=== PATIENT | male | born 1950 | race Caucasian/White ===

== ENCOUNTER 2019-08-01 10:57 | Outpatient (CLI) | payer MEDICARE, OTHER ==
[2019-08-01 12:53] VITALS: BP 166/103
--- NOTE | 2019-08-01 12:53 | SLEEP CARE CONSULTATION ---
Information from patient questionnaire entered by Cate Arias. I have reviewed and concur with the information entered by Cate Arias. This document represents the service I personally performed and the decisions made by me, Victorina Hurt MD, [facility]. History of Present Illness Reason for Visit: New patient Chief Complaint: reports: Other (study for apnea) Duration of Symptoms: years Usual bedtime: 0 Time it takes to fall asleep: fast Snores at night: Yes (without machine) Observed to quit breathing while asleep: Yes Sleeps alone due to snoring: No Number of times waking at night: 1 Reasons for waking at night: reports: Bathroom Toss, Turn, or Twitch while sleeping: Yes Recalls having dreams: Yes Usually gets out of bed at: 0700 Morning headache: No Sleepy or fatigued during the day: Yes (sometimes) Ever fallen asleep while driving: No Takes day naps: Yes Dreams during day naps: Yes Prior sleep studies: Yes Additional HPI information: I had the pleasure of seeing Mr. Lopez today regarding obstructive sleep apnea-hypopnea. As you know, he is a 68 year old gentleman who was diagnosed with the sleep-disordered breathing long time ago. One polysomnography report we have is from [place], [place] in 2004. The AHI was 59. He has a very old Respironics M-Series CPAP device set at 13.5 cmH2O. He uses every night and all night. The compliance data is not available. He wears a nasal mask. He finds the treatment very beneficial. He gets his supplies online and a durable medical supplier in [place]. The durable medical supplier told him that he will need a new sleep study to purchase a new machine on Medicare. He also has a Transcend traveling CPAP. Subjective Initial [place] Sleepiness Scale score: 12 Past Medical History Past Medical History: reports: Hypertension, Anxiety, Depression Social History The patient's occupation is retired. Patient is and lives in [place]. Have you smoked in the past 12 months: Yes Cigarettes per day (20/pack): 40 Years of smokin Quit date: 38 years ago Smoking Pack Years: 34.0 Alcohol use: Yes Alcohol amount and frequency: 3-4 glasses of wine/week Caffeine use: Yes Caffeine amount and frequency: 1-2 cups of coffe/day Allergies and Home Medications Drug allergies reviewed: Yes Home medication list reviewed: Yes Allergy and home medication list: Meds: Amlodipine 5 mg Review of Systems Cardiovascular: reports: high blood pressure Respiratory: denies: shortness of breath, wheeze, sputum production, chronic cough, other Gastrointestinal: reports: heartburn Urinary: denies: incontinence, frequency, urgency, impotence, other Neurological: denies: headaches, seizure, head trauma, disorientation, speech dysfunction, gait or balance problems, fainting or unconsciousness, other Psychiatric: reports: anxiety Ear/Nose/Throat: reports: nasal congestion, tonsillectomy, wisdom teeth removed Endocrine: reports: sluggishness, too hot or cold Musculoskeletal: reports: back pain Immunologic: denies: sneezing, rash, itching, allergies to food or environment, other Physical Exam Vital signs obtained and entered by: Dr. Hurt Blood Pressure: 166/103 Cuff size: regular Heart Rate: 61 O2 Saturation: 97 Height: 5 ft 9 in Weight: 170 lb Body Mass Index: 25.1 BMI Classification: Overweight Neck circumference: 15.5 Mood/affect: normal HEENT: No craniofacial malformation Nostrils: patent to airflow Turbinates: normal Septum: midline Mouth and throat: narrow oropharynx Soft palate: long Hard palate: normal Uvula: normal Uvula visualization: 25% Mallampati Class III Tongue: enlarged in size with teeth martin on lateral edges Tonsils: absent bilaterally Chin and jaw: normal size and position Neck: normal w/o lymphadenopathy or thyromegaly Heart: regular rate and rhythm Lungs: clear bilaterally Abdomen: soft, non-tender Extremities: no edema or clubbing Neurologic: intact, no focal deficits Impression and Plan IMPRESSION: 1. Obstructive Sleep Apnea-Hypopnea Syndrome, severe, as previously diagnosed. The patient has good CPAP compliance. The effectiveness of the treatment is u nknown. His CPAP is much older than its reasonable useful life of 5 years and will need to be replaced. I will repeat the diagnostic in-laboratory polysomnography for Medicare to cover his new machine. Plan: 1. Schedule an in-laboratory polysomnography. The patient is not to use his CPAP at home one night prior to the sleep study. 2. Return for follow up after the sleep study. I spent 100% of this 20 minute visit face to face with the patient with greater than 50% of this was spent time counseling the patient and coordination of care.
== END 2019-08-01 10:58 | disposition home or self-care (01) ==
LOC: SC 10:57
PROVIDERS: ATTEND Internal Medicine Pulmonary Disease
DX: G47.33 Obstructive sleep apnea (adult) (pediatric) (principal)
CPT/HCPCS: 99203; G0463; 99212

== ENCOUNTER 2019-08-29 20:39 | Outpatient (CLI) | payer MEDICARE, OTHER | END 2019-08-29 20:40 | disposition home or self-care (01) | LOC: SC 20:39 | PROVIDERS: ATTEND Internal Medicine Pulmonary Disease | DX: G47.33 Obstructive sleep apnea (adult) (pediatric) (principal) | CPT/HCPCS: 95810 ==

== ENCOUNTER 2019-09-26 13:17 | Outpatient (CLI) | payer MEDICARE, OTHER ==
[2019-09-26 14:12] VITALS: BP 120/74
--- NOTE | 2019-09-26 14:12 | SLEEP CARE CONSULTATION ---
Information from patient questionnaire entered by Natali Agrawal. I have reviewed and concur with the information entered by Natali Agrawal. This document represents the service I personally performed and the decisions made by me, Joslyn Valencia, RN, MSN, CARE ASSISTANT. History of Present Illness Initial [place] Sleepiness Scale score: 12 Current [place] Sleepiness Scale score: 8 Additional HPI information: EDNA GIPSON returns with partner for follow up and results of the recently performed polysomnography. I explained the pathophysiology behind obstructive sleep apnea. We then spent quite a bit of time discussing different treatment options. For mild obstructive sleep apnea, surgery and oral appliance are alternatives to nasal CPAP therapy but in moderate or severe cases, nasal CPAP is the most effective and reliable treatment. I reviewed the impact of weight changes on sleep apnea and strongly recommended losing weight. After some discussion, the patient opted to continue with the nasal CPAP therapy. He is currently using a CPAP set at 13.5cmH20 and has noted some air hunger intermittently and was advised by last sleep provider to try CPAP at [id number]. He has tried autoCPAP and is not comfortable with autoCPAP on lower levels. A manual titration study will be ordered if unable to find optimal pressure with office adjustments. I explained how CPAP machine works with sample devices Respir[employer]balos Dreamstation and [employer] [id number] and what to expect when using the machine. Using CPAP every night in order to get used to it was emphasized. Patient advised to put CPAP mask on before getting into bed so as not to fall asleep without CPAP. To assist acclimation to CPAP use, it could also be used for a short time during day while reading or watching TV. The patient was instructed to call the CPAP supplier to discuss any mechanical problem that may occur. If the mask given is uncomfortable or is difficult to keep on through the night even with adjustment, contact the CPAP supplier as many will replace with another mask style if not ified before 30 days. If snoring or perceives is not getting enough air or too much air from the machine, notify this office. [facility] patient education PAP tips reviewed and given to patient. Patient prefers a Dreamstation. Patient counseled not drink alcohol less than 4 hours before bedtime as it can increase snoring and apnea. Patient was cautioned about risks of drowsy driving until sleepiness symptoms resolve. Patient denies drowsy driving. Sleep Study - Results Polysomnography/Home Sleep Study results: The quality of the study is good. The patient had reduced sleep efficiency due to frequent awakenings after the sleep onset. The sleep architecture was abnormal for sleep fragmentation and reduced amount of time spent in slow wave sleep (N3). Respiratory monitoring showed severe obstructive sleep apnea- hypopnea (AHI = 42.3) associated with frequent awakenings, oxyhemoglobin desaturation and mild hypoxia (miranda oxygen saturation of 86%). The respiratory events occurred mainly during supine sleep (supine AHI = 62.3; non- supine = 38.93). Snore was loud in intensity. There was no significant periodic leg movement of sleep. Cardiac rhythm was normal sinus rhythm without significant arrhythmia. No abnormal behavior (parasomnia) observed during the night. Allergies and Home Medications Known drug allergies: Yes (meena) Home medication list reviewed: Yes Allergy and home medication list: Amolodipne 5mg daily Review of Systems Review of systems same as previous: Yes Physical Exam Blood Pressure: 120/74 Cuff size: long Heart Rate: 69 O2 Saturation: 98 Height: 5 ft 9 in Weight: 175 lb 12.8 oz Body Mass Index: 25.9 BMI Classification: Overweight Impression and Plan 1. Obstructive Sleep Apnea-Hypopnea Syndrome, severe, with lowest oxygen saturation of 86% on sleep study, completed for re-evaluation since new to Medicare. He is currently using an old CPAP at 13.5cmH20 with air hunger noted at this range. He has not been comfortable with autoCPAP range in past. As mentioned above, the patient will have his CPAP updated with pressure set at 14 cmH2O. A manual titration study will be completed if unable to find optimal treatment pressure with office adjustments. Compliance guidelines also reviewed. A copy of compliance guidelines will be given for reference at check out. Because the apnea is more severe supine, I instructed to avoid sleeping supine using pillow positioning if unable to use CPAP. Positive pressure therapy could benefit his hypertension. * UPdate CPAP Nasal auto CPAP therapy, pressure at 14 cm H2O. * Attempt to lose some weight. * mask preference is Dreamwear nasal mask. * CPAP preference is Dreamstation * Avoid alcohol consumption near bedtime. * Avoid supine sleep if unable to use CPAP. * The patient is again cautioned about driving until sleepiness completely resolves. * Return one month after new CPAP obtained. I will assess response to therapy and compliance at that time. Time Spent with Patient (minutes): 30 I spent 100% of this visit face to face with the patient with greater than 50% of this was spent time counseling the patient and coordination of care.
== END 2019-09-26 13:18 | disposition home or self-care (01) ==
LOC: SC 13:17
PROVIDERS: ATTEND Nurse Practitioner Family
DX: G47.33 Obstructive sleep apnea (adult) (pediatric) (principal)
CPT/HCPCS: 99214; G0463; 99212

== ENCOUNTER 2019-12-12 12:59 | Outpatient (CLI) | payer MEDICARE, OTHER ==
--- NOTE | 2019-12-12 13:27 | SLEEP CARE CONSULTATION ---
Information from patient questionnaire entered by Natali Agrawal. I have reviewed and concur with the information entered by Natali Agrawal. This document represents the service I personally performed and the decisions made by me, Victorina Hurt MD, [facility]. History of Present Illness Previous diagnosis: Severe, Obstructive Sleep Apnea-Hypopnea Syndrome AHI: 42.3 Reason for follow up: first compliance Equipment type: CPAP Equipment obtained from: [employer] Mask style: Nasal Mask brand: Respironics HPI additional information: HPI: Mr. Lopez returned today for follow up of nasal CPAP therapy. He was diagnosed to have severe obstructive sleep apnea-hypopnea syndrome (AHI was 42.3). The patient wears a Respironics DreamWear nasal cushion mask. He reports using the device nightly and all through the night. The compliance report shows usage in 30 nights out of the past 30 nights, averaging 8.6 hours a night. The > 4 hour compliance rate for the past 30 days is 100%. He complained of no particular problem with the device such as soreness on the face, dry nose, epistaxis, nasal congestion or headache. He thinks that the pr essure of 14 cmH2O is comfortable. On the CPAP therapy he notices improvement in his sleep quality, and that he wakes up feeling fresher in the morning and more awake/alert during the day. [place] Sleepiness Scale score is 8. His notices no snore at all. The average residual AHI is 0.6; and average time in large leak per day is 38 seconds. CPAP Compliance Data - Data Reviewed with Patient Average duration of nightly device use: 8.5 Compliance rate %: 100 Current pressure setting (cmH2O): 14 Humidity settin Heated hose settin Average residual AHI: 0.6 Average large leak: 38 sec Subjective Initial [place] Sleepiness Scale score: 12 Current [place] Sleepiness Scale score: 8 Allergies and Home Medications Drug allergies reviewed: Yes Home medication list reviewed: Yes Review of Systems Review of systems same as previous: Yes Physical Exam Vital signs obtained and entered by: Physical exam is deferred because the Coronavirus epidemic. Height: 5 ft 9 in Impression and Plan IMPRESSION: 1. Obstructive Sleep Apnea-Hypopnea Syndrome, severe, with the patient doing well on nasal CPAP therapy. He has excellent compliance and significant clinical improvement. The current pressure appears effective and comfortable. His mask fits well. Overall, he is very satisfied with treatment and plans to continue with it long-term. No adjustment is necessary today. PLAN: 1. Continue with autoCPAP set at 14 cmH2O. 2. Return in one year for follow up or earlier if there is any problem with the treatment. I spent 100% of this visit face to face with the patient with greater than 50% of this was spent time counseling the patient and coordination of care.
== END 2019-12-12 13:00 | disposition home or self-care (01) ==
LOC: SC 12:59
PROVIDERS: ATTEND Internal Medicine Pulmonary Disease
DX: G47.33 Obstructive sleep apnea (adult) (pediatric) (principal)
CPT/HCPCS: 99213; G0463; 99212

== ENCOUNTER 2020-12-16 09:54 | Outpatient (CLI) | payer MEDICARE, OTHER ==
--- NOTE | 2020-12-17 10:16 | SLEEP CARE CONSULTATION ---
Information from patient questionnaire entered by Natali Agrawal. I have reviewed and concur with the information entered by Natali Agrawal. This document represents the service I personally performed and the decisions made by me, Victorina Hurt MD, [facility]. History of Present Illness Service Date and Time: 12/16/2020 0954 Previous diagnosis: Severe, Obstructive Sleep Apnea-Hypopnea Syndrome AHI: 42.3 (in 2018)(59 in 2004) Reason for follow up: annual (last seen 11/2019) Equipment type: CPAP Equipment obtained from: [employer] Mask style: Nasal Mask brand: Respironics (Dreamwear) Prior sleep studies: Yes Year and Where: 2018 - formerly [facility]; 2004 - [place], [place] Type of Sleep Study: Home sleep study HPI additional information: HPI: Mr. Lopez was diagnosed to have severe obstructive sleep apnea-hypopnea syndrome and returns today for his annual follow up of CPAP therapy. The patient purchased the device from [employer] and was fitted with a Respironics DreamWear nasal cushion mask. He uses the device nightly and all through the night. The compliance report shows that he uses the device 178 nights out of the past 180 nights, averaging 8.7 hours a night. He complains of no particular problem with the device such as soreness on the face, dry nose, epistaxis, nasal congestion or headache. He thinks that the pressure of 14 cmH2O is comfortable. On the CPAP therapy he notices improvement in his sleep quality, and that he wakes up feeling fresher in the morning and more awake/alert during the day. [place] Sleepiness Scale score is 9. The average residual AHI is 0.7; and average time in large leak per day is 18 seconds a night. CPAP Compliance Data - Data Reviewed with Patient Average duration of nightly device use: 8 hr 43 min Compliance rate %: 97.8 (180 days) Current pressure setting (cmH2O): 14 Humidity settin Heated hose settin Average residual AHI: 0.7 Average large leak: 18 sec Subjective Current pressure setting perceived as: comfortable Initial [place] Sleepiness Scale score: 12 (in 2018) Current [place] Sleepiness Scale score: 9 Allergies and Home Medications Drug allergies reviewed: Yes Home medication list reviewed: Yes Review of Systems Review of systems same as previous: Yes Physical Exam Blood Pressure: 169/103 Cuff size: regular (169/103) Height: 5 ft 9 in Weight: 175 lb Body Mass Index: 25.8 BMI Classification: Overweight Impression and Plan IMPRESSION: 1. Obstructive Sleep Apnea-Hypopnea Syndrome, severe, with the patient continuing to do well on nasal CPAP therapy. He has excellent compliance and significant clinical benefits. The current pressure appears effective and comfortable. Overall, he is very satisfied with treatment and plans to continue with it long-term. Because the residual AHI is very low, I will lower the pressure. PLAN: 1. CPAP set to autoCPAP mode with pressure range 10 14 cmH2O. 2. Try to lose some weight 3. Return in one year for follow up or earlier if there is any problem with the treatment. Visit Type: In Office Time Spent with Patient (minutes): 15 Provider Statement: I spent 100% of the Face to Face Visit with the patient with greater than 50% spent counseling the patient and coordination of care.
[2020-12-17 10:17] VITALS: BP 169/103
== END 2020-12-16 09:55 | disposition home or self-care (01) ==
LOC: SC 09:54
PROVIDERS: ATTEND Internal Medicine Pulmonary Disease
DX: G47.33 Obstructive sleep apnea (adult) (pediatric) (principal); E66.3 Overweight; Z68.25 Body mass index [BMI] 25.0-25.9, adult
CPT/HCPCS: 99212; G0463